=== PATIENT | male | born 1965 | race Caucasian/White ===

== ENCOUNTER 2022-03-26 12:38 | Day surgery (SDC) | payer OTHER ==
[~2022-03-26] VITALS: Ht 170.2 cm; Wt 85.9 kg
[2022-03-26] MEDS ORDERED: FLUVOXAMINE MAL50 MG PO (12:53)
[2022-03-26] MEDS ORDERED: LISINOPRIL20 MG PO (12:54)
[2022-03-26] MEDS ORDERED: ZYPREXA10 MG PO (12:54)
[2022-03-26] MEDS ORDERED: LIPITOR40 MG PO (12:55)
--- NOTE | 2022-03-26 15:29 | NUR ---
03/26/22 1529 Melina Coleman 1522 PT ARRIVED IN PACU WIDE AWAKE WITH NO C/O'S. ABD SOFT. TRANSPORT GUARDS AT BEDSIDE.
--- NOTE | 2022-03-27 13:04 | OR ---
[facility] [address], [place] [address] Signed DATE OF OPERATION: 03/26/2022 SURGEON: Stacey Jorge MD PREOPERATIVE DIAGNOSES: 1. Low-grade anemia (hematocrit 39.4). 2. Previous history of recurrent rectal bleeding, currently now quiescent. POSTOPERATIVE DIAGNOSES: 1. Internal hemorrhoids. 2. Hyperplastic polyps x3. PROCEDURES: Total colonoscopy to cecum with cold morcellation polypectomy x3. ANESTHESIA: Intravenous sedation, fentanyl 100 mcg, Versed 6 mg. INDICATIONS: This 56-year-old white man is a patient of LING Jones at [facility]. He was considered to have "anemia" with a hematocrit of 39.4. He has had episodic rectal bleeding, none recently, however. His problems began in July of 2021. He has no known family history of colon cancer. He is admitted at this time to undergo colonoscopy. He understands the risks of bleeding, infection, and perforation. FINDINGS: The prep was marginal, but with irrigation was reasonable. Complete colonoscopy was undertaken to the cecum without question. He had internal hemorrhoids, most likely the source of his bleeding and three small probably hyperplastic polyps of the sigmoid and rectum. DESCRIPTION OF PROCEDURE: The patient was brought to the endoscopy suite and placed in lateral decubitus position given intravenous sedation to the point of slurred speech and nystagmus with full cardiopulmonary monitoring. Digital rectal examination was normal. An Olympus video colonoscope was passed into the rectum and manipulated into the rectosigmoid, where small bits of stool and so forth were noted. Given his prep and so forth, proceeding on was deemed most advisable. The scope was advanced ultimately to the cecum. Using irrigation in the usual technique in a suboptimally prepped bowel. Electronically Signed By: STACEY JORGE MD 03/27/22 1304 PATIENT NAME: ABI TARIQ OPERATIVE REPORT DATE OF : 69 REPORT #: [id number] PHYSICIAN: STACEY JORGE MD PCP: ELSY MARIE REPORT IS CONFIDENTIAL AND NOT TO BE RELEASED WITHOUT AUTHORIZATION [facility] [address] [place], [place] [address] Signed The cecum was visualized. Mucosa elevated to see around the ileocecal valve. There was no finding of concern there. The scope was withdrawn. Careful examination throughout with copious amounts of irrigation so forth showed no abnormality into the sigmoid, where a small polyp was noted. This was excised with cold morcellation technique. Further withdrawal showed two probable hyperplastic polyps of the rectosigmoid, which were both excised too. Retroflexed view of the rectum demonstrated internal hemorrhoidal changes, which very probably has caused his rectal bleeding in the past. He was taken to the recovery room in good condition. CONCLUDING DIAGNOSIS: Rectal bleeding probably related to internal hemorrhoids, three small polyps. PLAN: Recommend repeat colonoscopy in 5 years based on the polyps and would consider a fiber supplement or high-fiber diet as regards the hemorrhoids. If additional bleeding is noted, consideration for in office hemorrhoidal banding. He will return to the ongoing care of LING Jones at [facility]. MD MELBA Levin/CANDACE /[id number] cc: LING Jones [facility] Copies: ~ Electronically Signed By: STACEY JORGE MD 03/27/22 1304 PATIENT NAME: MARCIANOABI OPERATIVE REPORT DATE OF : 69 REPORT #: [id number] PHYSICIAN: STACEY JORGE MD PCP: ELSY MARIE REPORT IS CONFIDENTIAL AND NOT TO BE RELEASED WITHOUT AUTHORIZATION
--- NOTE | 2022-04-01 13:07 | PATH ---
[facility] [address] [place], [place] [address] Signed SPECIMEN(S): A SIGMOID POLYP SPECIMEN(S): B RECTAL POLYP SPECIMEN SOURCE: A. SIGMOID POLYP B. RECTAL POLYP CLINICAL HISTORY: Rectal bleeding, anemia. FINAL PATHOLOGIC DIAGNOSIS: A. Colon, sigmoid, polypectomy: - Colonic mucosa with no significant pathologic changes. B. Rectum, polypectomy: - Hyperplastic polyp. AZRAP:mikael:jessicar:C2NR MICROSCOPIC EXAMINATION: Histologic sections of all submitted blocks are examined by light microscopy. These findings, together with the gross examination, support the pathologic diagnosis. GROSS DESCRIPTION: Two specimens are received in two containers, labeled "DM." A. The specimen, labeled "DM, 1," and designated on the requisition "sigmoid polypectomy," is received in formalin and consists of one comer soft tissue fragment that measures 0.5 cm in greatest dimension. The specimen is entirely submitted in cassette (A1). B. The specimen, labeled "DM, 2," and designated on the requisition "rectum polypectomy," is received in formalin and consists of one comer soft tissue fragment that measures 0.3 cm in greatest dimension. The specimen is entirely submitted in cassette (B1). AI (under the direct supervision of a pathologist) The Gross Description was prepared using a voice recognition system. The report was reviewed for accuracy; however, sound-alike word errors, addition and/or deletions may occur. If there is any question about this report, please contact Client Services. PERFORMING LABORATORY: The technical component was performed by [facility], [address] [place] [id number] (CLIA# [id number]). Professional interpretation was PATIENT NAME: ABI TARIQ PATHOLOGY DATE OF : 69 REPORT #: [id number] PHYSICIAN: RONNIE PATHOLOGY PCP: ELSY MARIE REPORT IS CONFIDENTIAL AND NOT TO BE RELEASED WITHOUT AUTHORIZATION [facility] [address] [place], [place] [address] Signed performed by [facility], [address] [address] (CLIA# [id number]). Diagnostician: Tono Vincent MD Pathologist Electronically Signed 04/01/2022 Copies: ~ PATIENT NAME: ABI TARIQ PATHOLOGY DATE OF : 69 REPORT #: [id number] PHYSICIAN: RONNIE PATHOLOGY PCP: ELSY MARIE REPORT IS CONFIDENTIAL AND NOT TO BE RELEASED WITHOUT AUTHORIZATION
== END 2022-03-26 15:43 | disposition home or self-care (01) ==
LOC: OPS 12:38 → DS 12:38 → OPS 14:00
PROVIDERS: ATTEND Surgery
PROC: 0DBN8ZX Excision of Sigmoid Colon, Via Natural or Artificial Opening Endoscopic, Diagnostic (ICD-10-PCS; principal; 2022-03-26 14:00)
DX: K62.1 Rectal polyp (principal); D64.9 Anemia, unspecified; K64.8 Other hemorrhoids; K63.5 Polyp of colon; F31.9 Bipolar disorder, unspecified; I10 Essential (primary) hypertension; E66.9 Obesity, unspecified; Z87.19 Personal history of other diseases of the digestive system; Z86.16 Personal history of COVID-19
CPT/HCPCS: 99153; G0500; J2250; J3010; J7121